=== PATIENT | male | born 1980 | race African-American/Black ===

== ENCOUNTER 2020-06-05 10:58 | Inpatient (IN) | payer BC ==
[2020-06-05 14:35] VITALS: BMI 27.7
[2020-06-05] MEDS ORDERED: MAGNESIUM HYDROX 2400MG/30ML ORAL SUSPENSION 30 ML CUP PO PRN (17:59)
[2020-06-05] MEDS ORDERED: ACETAMINOPHEN 325 MG TABLET (FP) PO PRN (17:59)
[2020-06-05] MEDS ORDERED: guaiFENesin 200 MG/10 ML 10 ML UNIT-DOSE CUPS PO PRN (17:59)
[2020-06-05] MEDS ORDERED: MAG HYDROX/AL HYDROX/SIMETH 30 ML UNIT-DOSE CUP PO PRN (17:59)
[2020-06-05] MEDS ORDERED: IBUPROFEN 400 MG TABLET (FP) PO PRN (17:59)
[2020-06-05] MEDS ORDERED: LOPERAMIDE HCL 2 MG CAPSULE PO PRN (17:59)
[2020-06-05] MEDS ORDERED: P-EPHED 60MG/TRIPROLIDI 2.5MG TABLET PO PRN (17:59)
[2020-06-05] MEDS ORDERED: MAGNESIUM CITRATE 300 ML BOTTLE PO PRN (17:59)
[2020-06-05] MEDS: hydrOXYzine PAMOATE 25 MG CAPSULE (FP) PO SCH ×2 (19:10→21:10)
[2020-06-05] MEDS ORDERED: TUBERCULIN PPD 5 TU/0.1ML VIAL ID ONE ×2 (19:10→22:17)
[2020-06-05] MEDS: MELATONIN 5 MG TABLETS PO SCH (21:10)
[2020-06-05] MEDS: THIAMINE HCL 100 MG TABLET (FP) PO SCH (21:10)
[2020-06-05] MEDS: NICOTINE 7 MG/24 HOURS TOPICAL PATCH TD SCH (21:11)
[2020-06-06] MEDS: hydrOXYzine PAMOATE 25 MG CAPSULE (FP) PO SCH ×5 (07:03→21:17)
[2020-06-06] MEDS: PRENATAL VITAMINS W/ FOLIC ACID TABLET (FP) PO SCH (09:10)
[2020-06-06] MEDS: NICOTINE 7 MG/24 HOURS TOPICAL PATCH TD SCH (09:11)
[2020-06-06 10:36] LABS: HEMATOCRIT 42.2 % (35.4-49); HEMOGLOBIN 14.4 GM/dL (11.7-16.9); MCHC 34.1 g/dl (32.0-35.9); MEAN CELL VOLUME 76.3 fl (80-96); MEAN PLT VOLUME 8.5 fl (7.5-11.1); PLATELET COUNT 272 K/MM3 (134-434); RBC 5.54 M/mm3 (4.00-5.60); RDW 14.6 % (11.9-15.9); WHITE BLOOD COUNT 12.6 K/mm3 (4.0-10.0)
[2020-06-06 10:49] LABS: CALCIUM 9.4 mg/dL (8.5-10.1)
[2020-06-06 10:51] LABS: ALBUMIN 3.7 g/dl (3.4-5.0); BLOOD UREA NITROGEN 11.4 mg/dL (7-18)
[2020-06-06 10:54] LABS: CREATININE 1.1 mg/dL (0.55-1.3)
[2020-06-06 10:56] LABS: BILIRUBIN,TOTAL 0.5 mg/dL (0.2-1); TOT PROT 7.5 g/dl (6.4-8.2)
[2020-06-06] MEDS: ARIPiprazole 5 MG TABLET PO SCH (11:28)
[2020-06-06] MEDS: ESCITALOPRAM OXALATE 10 MG TABLET PO SCH (11:28)
[2020-06-06 12:43] LABS: PH,URINE 6.5 (5.0-8.0); URINE APPEARANCE CLEAR; URINE BILIRUBIN NEGATIVE (NEGATIVE); URINE COLOR YELLOW; URINE GLUCOSE (UA) NEGATIVE (NEGATIVE); URINE KETONE TRACE (NEGATIVE); URINE LEUK ESTERASE NEGATIVE (NEGATIVE); URINE NITRITE NEGATIVE (NEGATIVE); URINE PROTEIN NEGATIVE (NEGATIVE)
[2020-06-06] MEDS: THIAMINE HCL 100 MG TABLET (FP) PO SCH (21:17)
[2020-06-06] MEDS: MELATONIN 5 MG TABLETS PO SCH (21:17)
[2020-06-06] MEDS: MIRTAZAPINE 15 MG TABLET (FP) PO SCH (21:18)
[2020-06-06] MEDS: GABAPENTIN 300 MG CAPSULE PO SCH (21:18)
[2020-06-07] MEDS: hydrOXYzine PAMOATE 25 MG CAPSULE (FP) PO SCH (06:44)
[2020-06-07] MEDS: GABAPENTIN 300 MG CAPSULE PO SCH ×3 (06:45→21:20)
[2020-06-07] MEDS: NICOTINE 7 MG/24 HOURS TOPICAL PATCH TD SCH (10:03)
[2020-06-07] MEDS: PRENATAL VITAMINS W/ FOLIC ACID TABLET (FP) PO SCH (10:04)
[2020-06-07] MEDS: ARIPiprazole 5 MG TABLET PO SCH (10:04)
[2020-06-07] MEDS: PANTOPRAZOLE 40 MG TABLET PO SCH (10:04)
[2020-06-07] MEDS: ESCITALOPRAM OXALATE 10 MG TABLET PO SCH (10:04)
[2020-06-07] MEDS: THIAMINE HCL 100 MG TABLET (FP) PO SCH (21:18)
[2020-06-07] MEDS: hydrOXYzine PAMOATE 25 MG CAPSULE (FP) PO PRN (21:19)
[2020-06-07] MEDS: MIRTAZAPINE 15 MG TABLET (FP) PO SCH (21:20)
[2020-06-07] MEDS: MELATONIN 5 MG TABLETS PO SCH (21:20)
[2020-06-08] MEDS: GABAPENTIN 300 MG CAPSULE PO SCH ×3 (06:42→21:17)
[2020-06-08] MEDS: PRENATAL VITAMINS W/ FOLIC ACID TABLET (FP) PO SCH (10:00)
[2020-06-08] MEDS: PANTOPRAZOLE 40 MG TABLET PO SCH (10:00)
[2020-06-08] MEDS: ESCITALOPRAM OXALATE 10 MG TABLET PO SCH (10:01)
[2020-06-08] MEDS: ARIPiprazole 5 MG TABLET PO SCH (10:01)
[2020-06-08] MEDS: NICOTINE 7 MG/24 HOURS TOPICAL PATCH TD SCH (10:02)
[2020-06-08] MEDS ORDERED: NICOTINE POLACRILEX 2 MG GUM BUC PRN (12:15)
[2020-06-08] MEDS: hydrOXYzine PAMOATE 25 MG CAPSULE (FP) PO PRN (13:38)
[2020-06-08] MEDS: MIRTAZAPINE 15 MG TABLET (FP) PO SCH (21:17)
[2020-06-08] MEDS: MELATONIN 5 MG TABLETS PO SCH (21:17)
[2020-06-08] MEDS: THIAMINE HCL 100 MG TABLET (FP) PO SCH (21:17)
[2020-06-09] MEDS: GABAPENTIN 300 MG CAPSULE PO SCH ×3 (07:00→21:17)
[2020-06-09] MEDS: NICOTINE 7 MG/24 HOURS TOPICAL PATCH TD SCH (09:49)
[2020-06-09] MEDS: ESCITALOPRAM OXALATE 10 MG TABLET PO SCH (09:50)
[2020-06-09] MEDS: ARIPiprazole 5 MG TABLET PO SCH (09:50)
[2020-06-09] MEDS: PRENATAL VITAMINS W/ FOLIC ACID TABLET (FP) PO SCH (09:51)
[2020-06-09] MEDS: PANTOPRAZOLE 40 MG TABLET PO SCH (09:51)
[2020-06-09 10:06] LABS: SARS-CoV-2 NAA Not Detected (Not Detected)
[2020-06-09] MEDS: THIAMINE HCL 100 MG TABLET (FP) PO SCH (21:17)
[2020-06-09] MEDS: MELATONIN 5 MG TABLETS PO SCH (21:17)
[2020-06-09] MEDS: MIRTAZAPINE 15 MG TABLET (FP) PO SCH (21:17)
[2020-06-10] MEDS: GABAPENTIN 300 MG CAPSULE PO SCH ×3 (06:26→21:07)
[2020-06-10] MEDS: ARIPiprazole 5 MG TABLET PO SCH (09:54)
[2020-06-10] MEDS: PRENATAL VITAMINS W/ FOLIC ACID TABLET (FP) PO SCH (09:55)
[2020-06-10] MEDS: ESCITALOPRAM OXALATE 10 MG TABLET PO SCH (09:55)
[2020-06-10] MEDS: NICOTINE 7 MG/24 HOURS TOPICAL PATCH TD SCH (09:56)
[2020-06-10] MEDS: PANTOPRAZOLE 40 MG TABLET PO SCH (09:57)
[2020-06-10] MEDS: THIAMINE HCL 100 MG TABLET (FP) PO SCH (21:06)
[2020-06-10] MEDS: MELATONIN 5 MG TABLETS PO SCH (21:06)
[2020-06-10] MEDS: MIRTAZAPINE 15 MG TABLET (FP) PO SCH (21:07)
[2020-06-11] MEDS: GABAPENTIN 300 MG CAPSULE PO SCH ×3 (06:20→21:29)
[2020-06-11] MEDS ORDERED: hydrOXYzine PAMOATE 25 MG CAPSULE (FP) PO PRN (09:50)
[2020-06-11] MEDS: PRENATAL VITAMINS W/ FOLIC ACID TABLET (FP) PO SCH (10:13)
[2020-06-11] MEDS: PANTOPRAZOLE 40 MG TABLET PO SCH (10:13)
[2020-06-11] MEDS: ESCITALOPRAM OXALATE 10 MG TABLET PO SCH (10:13)
[2020-06-11] MEDS: NICOTINE 7 MG/24 HOURS TOPICAL PATCH TD SCH (10:14)
[2020-06-11] MEDS: ARIPiprazole 10 MG TABLET PO SCH (10:14)
[2020-06-11] MEDS ORDERED: ARIPiprazole 5 MG TABLET ONE (10:14)
[2020-06-11] MEDS: hydrOXYzine PAMOATE 50 MG CAPSULE (FP) PO PRN (16:03)
[2020-06-11] MEDS: MIRTAZAPINE 15 MG TABLET (FP) PO SCH (21:29)
[2020-06-11] MEDS: MELATONIN 5 MG TABLETS PO SCH (21:29)
[2020-06-11] MEDS: THIAMINE HCL 100 MG TABLET (FP) PO SCH (21:29)
[2020-06-12] MEDS: GABAPENTIN 300 MG CAPSULE PO SCH ×3 (06:35→21:25)
[2020-06-12] MEDS: PANTOPRAZOLE 40 MG TABLET PO SCH (09:36)
[2020-06-12] MEDS: ARIPiprazole 10 MG TABLET PO SCH (09:37)
[2020-06-12] MEDS: PRENATAL VITAMINS W/ FOLIC ACID TABLET (FP) PO SCH (09:37)
[2020-06-12] MEDS: ESCITALOPRAM OXALATE 10 MG TABLET PO SCH (09:37)
[2020-06-12] MEDS: NICOTINE 7 MG/24 HOURS TOPICAL PATCH TD SCH (09:56)
[2020-06-12] MEDS: hydrOXYzine PAMOATE 50 MG CAPSULE (FP) PO PRN (16:39)
[2020-06-12] MEDS: FLUTICASONE PROP 0.05% 16 GM NASAL SPRAY NS SCH (21:24)
[2020-06-12] MEDS: MELATONIN 5 MG TABLETS PO SCH (21:24)
[2020-06-12] MEDS: THIAMINE HCL 100 MG TABLET (FP) PO SCH (21:24)
[2020-06-12] MEDS: MIRTAZAPINE 15 MG TABLET (FP) PO SCH (21:25)
[2020-06-13] MEDS: GABAPENTIN 300 MG CAPSULE PO SCH ×3 (06:19→21:20)
[2020-06-13] MEDS ORDERED: ARIPiprazole 5 MG TABLET ONE (08:49)
[2020-06-13] MEDS: PANTOPRAZOLE 40 MG TABLET PO SCH (09:41)
[2020-06-13] MEDS: ESCITALOPRAM OXALATE 10 MG TABLET PO SCH (09:41)
[2020-06-13] MEDS: FLUTICASONE PROP 0.05% 16 GM NASAL SPRAY NS SCH ×2 (09:41→21:20)
[2020-06-13] MEDS: ARIPiprazole 10 MG TABLET PO SCH (09:41)
[2020-06-13] MEDS: NICOTINE 21 MG/24 HOURS TOPICAL PATCH TD SCH (09:42)
[2020-06-13] MEDS: PRENATAL VITAMINS W/ FOLIC ACID TABLET (FP) PO SCH (09:42)
[2020-06-13] MEDS: hydrOXYzine PAMOATE 50 MG CAPSULE (FP) PO PRN (18:02)
[2020-06-13] MEDS ORDERED: MIRTAZAPINE 15 MG TABLET (FP) ONE (20:33)
[2020-06-13] MEDS: THIAMINE HCL 100 MG TABLET (FP) PO SCH (21:19)
[2020-06-13] MEDS: MELATONIN 5 MG TABLETS PO SCH (21:19)
[2020-06-13] MEDS: MIRTAZAPINE 30 MG TABLET PO SCH (21:20)
[2020-06-14] MEDS: GABAPENTIN 300 MG CAPSULE PO SCH ×3 (06:20→21:24)
[2020-06-14] MEDS ORDERED: PT OWN MED DRAWER 7, Y5N ONE ×2 (09:03→10:00)
[2020-06-14] MEDS ORDERED: ARIPiprazole 5 MG TABLET ONE (09:03)
[2020-06-14] MEDS: NICOTINE 21 MG/24 HOURS TOPICAL PATCH TD SCH (09:54)
[2020-06-14] MEDS: PRENATAL VITAMINS W/ FOLIC ACID TABLET (FP) PO SCH (09:55)
[2020-06-14] MEDS: PANTOPRAZOLE 40 MG TABLET PO SCH (09:55)
[2020-06-14] MEDS: ESCITALOPRAM OXALATE 10 MG TABLET PO SCH (09:55)
[2020-06-14] MEDS: FLUTICASONE PROP 0.05% 16 GM NASAL SPRAY NS SCH ×2 (09:56→21:25)
[2020-06-14] MEDS: ARIPiprazole 10 MG TABLET PO SCH (09:56)
[2020-06-14] MEDS ORDERED: MASKS NR ONE (14:04)
[2020-06-14] MEDS: hydrOXYzine PAMOATE 50 MG CAPSULE (FP) PO PRN (18:04)
[2020-06-14] MEDS ORDERED: MIRTAZAPINE 15 MG TABLET (FP) ONE (18:46)
[2020-06-14] MEDS: THIAMINE HCL 100 MG TABLET (FP) PO SCH (21:23)
[2020-06-14] MEDS: MELATONIN 5 MG TABLETS PO SCH (21:23)
[2020-06-14] MEDS: MIRTAZAPINE 30 MG TABLET PO SCH (21:24)
[2020-06-15] MEDS: GABAPENTIN 300 MG CAPSULE PO SCH ×3 (06:31→21:09)
[2020-06-15] MEDS ORDERED: ARIPiprazole 5 MG TABLET ONE (08:31)
[2020-06-15] MEDS: FLUTICASONE PROP 0.05% 16 GM NASAL SPRAY NS SCH ×2 (09:01→21:10)
[2020-06-15] MEDS: ESCITALOPRAM OXALATE 10 MG TABLET PO SCH (09:01)
[2020-06-15] MEDS: PRENATAL VITAMINS W/ FOLIC ACID TABLET (FP) PO SCH (09:01)
[2020-06-15] MEDS: PANTOPRAZOLE 40 MG TABLET PO SCH (09:01)
[2020-06-15] MEDS: NICOTINE 21 MG/24 HOURS TOPICAL PATCH TD SCH (09:01)
[2020-06-15] MEDS: ARIPiprazole 10 MG TABLET PO SCH (09:01)
[2020-06-15] MEDS: hydrOXYzine PAMOATE 50 MG CAPSULE (FP) PO PRN ×2 (14:30→21:10)
[2020-06-15] MEDS ORDERED: MIRTAZAPINE 15 MG TABLET (FP) ONE (20:11)
[2020-06-15] MEDS ORDERED: PT OWN MED DRAWER 7, Y5N ONE (20:12)
[2020-06-15] MEDS: MELATONIN 5 MG TABLETS PO SCH (21:09)
[2020-06-15] MEDS: MIRTAZAPINE 30 MG TABLET PO SCH (21:10)
[2020-06-15] MEDS: THIAMINE HCL 100 MG TABLET (FP) PO SCH (21:10)
[2020-06-16] MEDS: GABAPENTIN 300 MG CAPSULE PO SCH ×3 (06:13→21:04)
[2020-06-16] MEDS ORDERED: ARIPiprazole 5 MG TABLET ONE (08:14)
[2020-06-16] MEDS: FLUTICASONE PROP 0.05% 16 GM NASAL SPRAY NS SCH ×2 (09:07→21:05)
[2020-06-16] MEDS: PANTOPRAZOLE 40 MG TABLET PO SCH (09:07)
[2020-06-16] MEDS: NICOTINE 21 MG/24 HOURS TOPICAL PATCH TD SCH (09:07)
[2020-06-16] MEDS: ARIPiprazole 10 MG TABLET PO SCH (09:07)
[2020-06-16] MEDS: ESCITALOPRAM OXALATE 10 MG TABLET PO SCH (09:07)
[2020-06-16] MEDS: PRENATAL VITAMINS W/ FOLIC ACID TABLET (FP) PO SCH (09:08)
[2020-06-16] MEDS ORDERED: MIRTAZAPINE 15 MG TABLET (FP) ONE (19:21)
[2020-06-16] MEDS: THIAMINE HCL 100 MG TABLET (FP) PO SCH (21:04)
[2020-06-16] MEDS: hydrOXYzine PAMOATE 50 MG CAPSULE (FP) PO PRN (21:04)
[2020-06-16] MEDS: MELATONIN 5 MG TABLETS PO SCH (21:05)
[2020-06-16] MEDS: MIRTAZAPINE 30 MG TABLET PO SCH (21:05)
[2020-06-17] MEDS: GABAPENTIN 300 MG CAPSULE PO SCH ×3 (07:04→21:29)
[2020-06-17] MEDS ORDERED: PT OWN MED DRAWER 7, Y5N ONE ×2 (09:33→21:31)
[2020-06-17] MEDS: NICOTINE 21 MG/24 HOURS TOPICAL PATCH TD SCH (10:04)
[2020-06-17] MEDS: FLUTICASONE PROP 0.05% 16 GM NASAL SPRAY NS SCH ×2 (10:05→21:32)
[2020-06-17] MEDS: ESCITALOPRAM OXALATE 10 MG TABLET PO SCH (10:06)
[2020-06-17] MEDS: PRENATAL VITAMINS W/ FOLIC ACID TABLET (FP) PO SCH (10:06)
[2020-06-17] MEDS: PANTOPRAZOLE 40 MG TABLET PO SCH (10:06)
[2020-06-17] MEDS: ARIPiprazole 10 MG TABLET PO SCH (10:06)
[2020-06-17] MEDS: hydrOXYzine PAMOATE 50 MG CAPSULE (FP) PO PRN (16:55)
[2020-06-17] MEDS: MELATONIN 5 MG TABLETS PO SCH (21:29)
[2020-06-17] MEDS: THIAMINE HCL 100 MG TABLET (FP) PO SCH (21:29)
[2020-06-17] MEDS: traZODone HCL 50 MG TABLET (FP) PO SCH (21:31)
[2020-06-17] MEDS ORDERED: BENZTROPINE MESYLATE 0.5 MG TABLET (FP) PO SCH (22:00)
[2020-06-17] MEDS ORDERED: QUEtiapine FUMARATE 50 MG TABLET PO SCH (22:00)
[2020-06-18] MEDS: GABAPENTIN 300 MG CAPSULE PO SCH ×3 (06:18→21:07)
[2020-06-18 06:44] VITALS: PULSE 90
[2020-06-18] MEDS ORDERED: BENZTROPINE MESYLATE 1 MG TABLET PO SCH (10:00)
[2020-06-18] MEDS: FLUTICASONE PROP 0.05% 16 GM NASAL SPRAY NS SCH ×2 (10:22→21:08)
[2020-06-18] MEDS: PANTOPRAZOLE 40 MG TABLET PO SCH (10:23)
[2020-06-18] MEDS: PRENATAL VITAMINS W/ FOLIC ACID TABLET (FP) PO SCH (10:23)
[2020-06-18] MEDS: NICOTINE 21 MG/24 HOURS TOPICAL PATCH TD SCH (10:23)
[2020-06-18] MEDS: ESCITALOPRAM OXALATE 10 MG TABLET PO SCH (10:24)
[2020-06-18 11:14] LABS: BASO % 0.3 % (0-2.0); EOS % 1.2 % (0-4.5); HEMOGLOBIN 15.4 GM/dL (11.7-16.9); LYMPH % 21.4 % (8-40); MCH 25.6 pg (25.7-33.7); MCHC 34.2 g/dl (32.0-35.9); MEAN CELL VOLUME 74.8 fl (80-96); MEAN PLT VOLUME 10.1 fl (7.5-11.1); MONO % 9.5 % (3.8-10.2); NEUT % 67.6 % (42.8-82.8); PLATELET COUNT 241 K/MM3 (134-434); RBC 6.02 M/mm3 (4.00-5.60); RDW 14.2 % (11.9-15.9); WHITE BLOOD COUNT 9.8 K/mm3 (4.0-10.0)
[2020-06-18] MEDS ORDERED: PT OWN MED DRAWER 7, Y5N ONE (15:57)
[2020-06-18] MEDS: hydrOXYzine PAMOATE 50 MG CAPSULE (FP) PO PRN (16:37)
[2020-06-18] MEDS: traZODone HCL 50 MG TABLET (FP) PO SCH (21:07)
[2020-06-18] MEDS: THIAMINE HCL 100 MG TABLET (FP) PO SCH (21:07)
[2020-06-18] MEDS: MELATONIN 5 MG TABLETS PO SCH (21:07)
[2020-06-18] MEDS: BENZTROPINE MESYLATE 1 MG TABLET PO SCH (21:08)
[2020-06-19] MEDS: hydrOXYzine PAMOATE 50 MG CAPSULE (FP) PO PRN (01:57)
[2020-06-19] MEDS: GABAPENTIN 300 MG CAPSULE PO SCH (06:12)
[2020-06-19 07:31] VITALS: BP 137/80; TEMP 97.3
[2020-06-19] MEDS ORDERED: PT OWN MED DRAWER 7, Y5N ONE (09:01)
[2020-06-19] MEDS: BENZTROPINE MESYLATE 1 MG TABLET PO SCH (09:12)
[2020-06-19] MEDS: ESCITALOPRAM OXALATE 10 MG TABLET PO SCH (09:12)
[2020-06-19] MEDS: PANTOPRAZOLE 40 MG TABLET PO SCH (09:12)
[2020-06-19] MEDS: NICOTINE 21 MG/24 HOURS TOPICAL PATCH TD SCH (09:13)
[2020-06-19] MEDS: PRENATAL VITAMINS W/ FOLIC ACID TABLET (FP) PO SCH (09:13)
[2020-06-19] MEDS: FLUTICASONE PROP 0.05% 16 GM NASAL SPRAY NS SCH (09:14)
== END 2020-06-19 09:26 | disposition home or self-care (01) | DRG 772 ==
LOC: YASAS 10:58 → Y3E 17:26
PROVIDERS: ADMIT Allergy & Immunology; ATTEND Allergy & Immunology
PROC: HZ42ZZZ Group Counseling for Substance Abuse Treatment, Cognitive-Behavioral (ICD-10-PCS; principal; 2020-06-05)
DX: F10.20 Alcohol dependence, uncomplicated (principal); F14.20 Cocaine dependence, uncomplicated; F19.20 Other psychoactive substance dependence, uncomplicated; F12.20 Cannabis dependence, uncomplicated; F17.210 Nicotine dependence, cigarettes, uncomplicated; F19.280 Other psychoactive substance dependence with psychoactive substance-induced anxiety disorder; F25.9 Schizoaffective disorder, unspecified; G24.09 Other drug induced dystonia; G47.00 Insomnia, unspecified; K21.9 Gastro-esophageal reflux disease without esophagitis; Z86.69 Personal history of other diseases of the nervous system and sense organs; Z56.0 Unemployment, unspecified; Z59.0 Homelessness
CPT/HCPCS: 36415; 80053; 81003; 85025; 85027; 86780; C9803; U0003; U0005